=== PATIENT | male | born 1960 | race Caucasian/White ===

== ENCOUNTER 2017-12-11 10:47 | Outpatient (REF) | payer MEDICAID, SELFPAY ==
[2017-12-11 19:58] LABS: Cholesterol 165 mg/dL (50-200); HDL Cholesterol 70 mg/dL (40-60); LDL CHOLESTEROL 87 mg/dL (<100); Triglyceride 48 mg/dL (30-150)
== END 2017-12-11 11:07 ==
LOC: NCHCN 10:47
PROVIDERS: PCP Internal Medicine; Visit Provider Internal Medicine
DX: E11.9 Type 2 diabetes mellitus without complications (principal); I10 Essential (primary) hypertension; Z95.0 Presence of cardiac pacemaker
CPT/HCPCS: 80061; 83721

== ENCOUNTER 2019-05-02 09:18 | Outpatient (REF) | payer MEDICAID, SELFPAY ==
[2019-05-02 21:46] LABS: HCT 39.3 % (40.0-50.0); HGB 13.4 g/dL (13.5-17.5); Mean Corp. HGB Concentration 34.1 g/dL (32.0-36.0); Mean Corpuscular Hemoglobin 30.2 pg (27.0-33.0); Mean Corpuscular Volume 88.7 fL (80-95); Mean Platelet Volume 9.8 fL (8.0-11.0); Platelet Count 121 x1000/uL (130-400); RBC 4.43 m/cumm (4.50-6.00); White Blood Cell Count 5.52 k/cumm (4.4-10.8)
[2019-05-02 22:33] LABS: ALT 30 U/L (16-63); AST 19 U/L (15-37); Alkaline Phosphatase 80 U/L (46-116); Anion Gap 9.1 mmol/L (3-11); BUN 9 mg/dL (7-18); Bilirubin, Total 0.4 mg/dL (0.2-1.0); CO2 27.9 mmol/L (21.0-32.0); CREATININE 0.76 mg/dL (0.70-1.30); Chloride 102 mmol/L (98-107); Glucose 208 mg/dL (74-106); Sodium 139 mmol/L (136-145)
[2019-05-02 22:34] LABS: Hemoglobin A1C 7.4 % (3.8-5.6)
[2019-05-02 22:49] LABS: Calculated LDL 127 mg/dL (<100); Cholesterol 227 mg/dL (<200); HDL Cholesterol 78 mg/dL (40-60); Triglyceride 111 mg/dL (<150)
== END 2019-05-02 09:38 ==
LOC: NCHCN 09:18
PROVIDERS: PCP Internal Medicine; Visit Provider Internal Medicine
DX: E11.9 Type 2 diabetes mellitus without complications (principal); K74.60 Unspecified cirrhosis of liver
CPT/HCPCS: 80053; 80061; 85027; 83036

== ENCOUNTER 2019-05-05 09:39 | Outpatient (REF) | payer MEDICAID, SELFPAY ==
[2019-05-05 22:45] LABS: COMMENT (LAB VIEW ONLY) 50.97 mg/dL
[2019-05-05 22:56] LABS: Microalb ug/mg Crea 1742.2 ug/mg Cr
== END 2019-05-05 09:59 ==
LOC: NCHCN 09:39
PROVIDERS: PCP Internal Medicine; Visit Provider Internal Medicine
DX: E11.9 Type 2 diabetes mellitus without complications (principal)
CPT/HCPCS: 82043; 82570

== ENCOUNTER 2020-05-15 11:40 | Outpatient (REF) | payer MEDICAID, SELFPAY ==
[2020-05-15 14:04] LABS: Anion Gap 8.7 mmol/L (3-11); BUN 18 mg/dL (7-18); CO2 26.3 mmol/L (21.0-32.0); CREATININE 0.7 mg/dL (0.70-1.30); Calculated LDL 108 mg/dL (<100); Chloride 101 mmol/L (98-107); Cholesterol 217 mg/dL (<200); Glucose 166 mg/dL (74-106); HDL Cholesterol 93 mg/dL (40-60); Potassium 4.3 mmol/L (3.5-5.1); Sodium 136 mmol/L (136-145); Triglyceride 83 mg/dL (<150)
[2020-05-15 14:21] LABS: Hemoglobin A1C 7.8 % (<5.7)
[2020-05-15 14:56] LABS: COMMENT (LAB VIEW ONLY) 90.57 mg/dL
== END 2020-05-15 11:41 | disposition home or self-care (01) ==
LOC: NCHCN 11:40
PROVIDERS: PCP Internal Medicine; Visit Provider Internal Medicine
DX: I10 Essential (primary) hypertension (principal); E11.9 Type 2 diabetes mellitus without complications; R80.9 Proteinuria, unspecified
CPT/HCPCS: 80048; 80061; 82043; 82570; 83036

== ENCOUNTER 2020-07-09 16:40 | Outpatient (REF) | payer MEDICAID, SELFPAY ==
[2020-07-09 21:32] LABS: COMMENT (LAB VIEW ONLY) 36.27 mg/dL
[2020-07-09 21:33] LABS: Microalb ug/mg Crea 837.1 ug/mg Cr
== END 2020-07-09 16:41 | disposition home or self-care (01) ==
LOC: NCHCN 16:40
PROVIDERS: PCP Internal Medicine; Visit Provider Internal Medicine
DX: E11.9 Type 2 diabetes mellitus without complications (principal)
CPT/HCPCS: 82043; 82570

== ENCOUNTER 2021-03-21 08:53 | Outpatient (REF) | payer MEDICAID, SELFPAY ==
[2021-03-21 14:58] LABS: Abs Immature Grans 0.01 10^3/uL (0.0-0.06); Absolute Basophil Count 0.04 10^3/uL (0.0-0.2); Absolute Eosinophil Count 0.21 10^3/uL (0.0-0.7); Absolute Lymphocyte Count 1.36 10^3/uL (1.2-3.4); Absolute Monocyte Count 0.39 10^3/uL (0.1-0.8); Absolute Neutrophil Count 3.12 10^3/uL (1.2-6.7); Basophils % 0.8; Eosinophils % 4.1; HCT 37.1 % (40.0-50.0); HGB 11.9 g/dL (13.5-17.5); Immature Grans % 0.2; Lymphocytes % 26.5; MCH 29.2 pg (27.0-33.0); MCHC 32.1 % (32.0-36.0); MCV 91.2 fL (80-95); MPV 9.9 fL (8.0-11.0); Monocytes % 7.6; Neutrophils % 60.8; Nucleated RBC 0 %; Platelet Count 120 10^3/uL (130-400); RBC 4.07 10^6/uL (4.36-5.78); RDW 13.6 % (11.8-14.1); RDW-SD 45.5 fL; WBC 5.13 10^3/uL (4.4-10.8)
[2021-03-21 16:00] LABS: Hemoglobin A1C 6.8 % (<5.7)
[2021-03-21 16:14] LABS: ALT 42 U/L (16-63); AST 26 U/L (15-37); Albumin 3.8 g/dL (3.4-5.0); Alkaline Phosphatase 93 U/L (46-116); Anion Gap 6.5 mmol/L (3-11); BUN 17 mg/dL (7-18); Bilirubin, Total 0.4 mg/dL (0.2-1.0); CO2 28.5 mmol/L (21.0-32.0); CREATININE 0.8 mg/dL (0.70-1.30); Calcium 8.7 mg/dL (8.5-10.1); Calculated LDL 103 mg/dL (<100); Chloride 105 mmol/L (98-107); Cholesterol 199 mg/dL (<200); Glucose 156 mg/dL (74-106); HDL Cholesterol 86 mg/dL (40-60); Potassium 4.5 mmol/L (3.5-5.1); Sodium 140 mmol/L (136-145); Total Protein 6.8 g/dL (6.4-8.2); Triglyceride 51 mg/dL (<150)
== END 2021-03-21 08:54 | disposition home or self-care (01) ==
LOC: NCHCN 08:53
PROVIDERS: PCP Internal Medicine; Visit Provider Internal Medicine
DX: E78.5 Hyperlipidemia, unspecified (principal); K74.60 Unspecified cirrhosis of liver; E11.9 Type 2 diabetes mellitus without complications
CPT/HCPCS: 80053; 80061; 83036; 85025

== ENCOUNTER 2022-04-11 14:43 | Outpatient (REF) | payer MEDICAID, SELFPAY ==
[2022-04-11 20:56] LABS: HCT 35.5 % (40.0-50.0); HGB 11.6 g/dL (13.5-17.5); MCHC 32.7 % (32.0-36.0); MCV 89 fL (80-95); MPV 9.9 fL (8.0-11.0); Platelet Count 120 10^3/uL (130-400); RDW 13.5 % (11.8-14.1); RDW-SD 44.4 fL; WBC 5.23 10^3/uL (4.4-10.8)
[2022-04-11 21:11] LABS: ALT 39 U/L (16-63); AST 27 U/L (15-37); Albumin 3.9 g/dL (3.4-5.0); Alkaline Phosphatase 99 U/L (46-116); Anion Gap 6.5 mmol/L (3-11); BUN 19 mg/dL (7-18); Bilirubin, Total 0.3 mg/dL (0.2-1.0); CO2 26.5 mmol/L (21.0-32.0); CREATININE 0.8 mg/dL (0.70-1.30); Chloride 105 mmol/L (98-107); Estimated GFR 99.44 (mL/min/1.73m2); Glucose 174 mg/dL (74-106); Potassium 4.5 mmol/L (3.5-5.1); Sodium 138 mmol/L (136-145); Total Protein 7.3 g/dL (6.4-8.2)
[2022-04-11 21:34] LABS: Hemoglobin A1C 7.3 % (<5.7)
[2022-04-11 21:40] LABS: COMMENT (LAB VIEW ONLY) 35.75 mg/dL
[2022-04-11 21:41] LABS: Microalb ug/mg Crea 1678.9 ug/mg Cr
== END 2022-04-11 14:44 | disposition home or self-care (01) ==
LOC: NCHCN 14:43
PROVIDERS: PCP Internal Medicine; Visit Provider Internal Medicine
DX: E11.9 Type 2 diabetes mellitus without complications (principal); I10 Essential (primary) hypertension; K74.60 Unspecified cirrhosis of liver
CPT/HCPCS: 80053; 85027; 82043; 82570; 83036

== ENCOUNTER 2022-12-22 09:13 | Outpatient (REF) | payer MEDICAID, SELFPAY ==
--- OUTSIDE RECORDS SUMMARY | 2022-12-22 09:15 | XMS_ITS | CCD ---
Author Name Unknown Address [address] [place] [address] [id number] Organization Unknown Address [address] [place] [address] [id number] Care Team Providers Care Deputy Commonwealth'S Attorney Name Role Phone SRIRAM BROWER Attending Physician [phone] Vital Signs Unknown or Not Available. Allergies Allergy Code Allergy Type Reaction Status No Known Allergies 0 No known allergies Active Procedures Unknown or Not Available. History of Immunizations Unknown or Not Available. Problems Problem Code Start Date Resolved Date Status Hyperlipidemia 16625243 Active Squamous cell carcinoma 961903104 A ctive Callus 621978964 Active Hearing loss 57927574 Active Dupuytren 040754716 Active Pain in right shoulder 96068264465669338 Active Venous insufficiency 95078904 Acti ve H/O: cardiac pacemaker 387761723 Ac tive ADHD 613733465 Active Hypertension 53792195 Active Pain in left ankle 029470661 Active Diabetes 2 67343836 Active Albumin level 949609292 Active Cirrhosis 69929998 Active Hepatitis C 20070558 Active Alcoholism 3814691 Active Esophageal varices 21555774 Active Results Unknown or Not Available. Active Medications Unknown or Not Available. Medications Administered During Visit Unknown or Not Available. Encounters Encounter Diagnosis Diagnosis Code Start Date Unspecified cirrhosis of liver K7460 0 04/22/2022 Social History Smoking Status Code Start Date End Date Never smoker 621311148 Patient Decision Aids Unknown or Not Available. Discharge Instructions You were admitted to [facility] on 04/22/2022 07:40 with a principal diagnosis of Unspecified cirrhosis of liver You were discharged from [facility] on 04/22/2022 07:40 Should you have any questions prior to discharge, please contact a member of your healthcare team. If you have left the hospital and have any questions, please contact your primary care physician. Chief Complaint and Reason For Visit Chief Complaint Date of Onset CIRRHOSIS Function Status Unknown or Not Available. Plan of Care Unknown or Not Available. Referral/Transition of Care Unknown or Not Available.
--- OUTSIDE RECORDS SUMMARY | 2022-12-22 09:15 | XMS_ITS | CCD ---
Author Name Unknown Address [address] [place] [address] [id number] Organization Unknown Address [address] [place] [address] [id number] Care Team Providers Care Administrative Job Titles Name Role Phone KALLI GARCIA Attending Physician [phone] Vital Signs Unknown or Not Available. Allergies Allergy Code Allergy Type Reaction Status No Known Allergies 0 No known allergies Active Procedures Unknown or Not Available. History of Immunizations Unknown or Not Available. Problems Problem Code Start Date Resolved Date Status Hyperlipidemia 82614417 Active Squamous cell carcinoma 074813981 A ctive Callus 999655356 Active Hearing loss 68071945 Active Dupuytren 092226014 Active Pain in right shoulder 92424574531609232 Active Venous insufficiency 51648425 Acti ve H/O: cardiac pacemaker 505661251 Ac tive ADHD 996687182 Active Hypertension 69281931 Active Pain in left ankle 274352194 Active Diabetes 2 47367767 Active Albumin level 666484402 Active Cirrhosis 78450036 Active Hepatitis C 99251161 Active Alcoholism 6138712 Active Esophageal varices 49134583 Active Results Unknown or Not Available. Active Medications Unknown or Not Available. Medications Administered During Visit Unknown or Not Available. Encounters Encounter Diagnosis Diagnosis Code Start Date Canceled operative procedure 38882856 12/2022 Social History Smoking Status Code Start Date End Date Never smoker 206041811 Patient Decision Aids Unknown or Not Available. Discharge Instructions You were admitted to [facility] on 05/15/2022 12:32 with a principal diagnosis of Procedure and treatment not carried out for other reasons You were discharged from [facility] on 05/15/2022 12:32 Should you have any questions prior to discharge, please contact a member of your healthcare team. If you have left the hospital and have any questions, please contact your primary care physician. Chief Complaint and Reason For Visit Unknown or Not Available. Function Status Unknown or Not Available. Plan of Care Unknown or Not Available. Referral/Transition of Care Unknown or Not Available.
--- OUTSIDE RECORDS SUMMARY | 2022-12-22 09:15 | XMS_ITS | CCD ---
Author Name Unknown Address [address] [place] [address] [id number] Organization Unknown Address [address] [place], [place] [id number] Care Team Providers Care Physician [facility] Name Role Phone SUKH GRULLON Attending Physician [phone] Vital Signs Unknown or Not Available. Allergies Allergy Code Allergy Type Reaction Status No Known Allergies 0 No known allergies Active Procedures Unknown or Not Available. History of Immunizations Unknown or Not Available. Problems Problem Code Start Date Resolved Date Status Hyperlipidemia 06752803 Active Squamous cell carcinoma 116301180 A ctive Callus 102807517 Active Hearing loss 72752231 Active Dupuytren 433561362 Active Pain in right shoulder 04255456397684446 Active Venous insufficiency 22391264 Acti ve H/O: cardiac pacemaker 226288265 Ac tive ADHD 431435070 Active Hypertension 84563386 Active Pain in left ankle 457415862 Active Diabetes 2 28911924 Active Albumin level 838585011 Active Cirrhosis 15161702 Active Hepatitis C 14842522 Active Alcoholism 2109313 Active Esophageal varices 10210753 Active Results Unknown or Not Available. Active Medications Unknown or Not Available. Medications Administered During Visit Unknown or Not Available. Encounters Encounter Diagnosis Diagnosis Code Start Date Counseling 099723775 06/26/2022 Social History Smoking Status Code Start Date End Date Never smoker 878426491 Patient Decision Aids Unknown or Not Available. Discharge Instructions You were admitted to [facility] on 06/26/2022 08:53 with a principal diagnosis of Other specified counseling You were discharged from [facility] on 06/26/2022 08:53 Should you have any questions prior to [...]
--- OUTSIDE RECORDS SUMMARY | 2022-12-22 09:16 | XMS_ITS | CCD ---
Author Name Unknown Address [address] [place] [address] [id number] Organization Unknown Address [address] [place], [place] [phone] Care Team Providers Care Ict Support Engineer Name Role Phone SUKH GRULLON Attending Physician [phone] Vital Signs Vital Sign Value Unit Date/Time Recent/Initial ? BP Systolic 117 mmHg 09/22/2022 12:15 Initial VS BP Diastolic 75 mmHg 09/22/2022 12:15 Initia l VS Respiratory Rate 15 bpm 09/22/2022 12:15 In itial VS Heart Rate 69 bpm 09/22/2022 12:15 Initial VS O2 % BldC Oximetry 97 % 09/22/2022 12:15 Initial VS BP Systolic 135 mmHg 09/22/2022 12:57 Most Re cent VS BP Diastolic 75 mmHg 09/22/2022 12:57 Most R ecent VS Respiratory Rate 14 bpm 09/22/2022 12:[address] Recent VS Heart Rate 65 bpm 09/22/2022 12:57 Most Rec ent VS O2 % BldC Oximetry 97 % 09/22/2022 12:57 Most Recent VS Allergies Allergy Code Allergy Type Reaction Status No Known Allergies 0 No known allergies Active Procedures Procedure Code Procedure Type Date Colonoscopy Flx Dx w/Collj Spec When Pfrmd 84364 CPT 09/22/2022 Anesthesia Lower Intst Endoscopic Px Scr Colsc 42919 CPT 09/22/2022 History of Immunizations Unknown or Not Available. Problems Problem Code Start Date Resolved Date Status Hyperlipidemia 11945037 Active Squamous cell carcinoma 180460018 A ctive Callus 485844100 Active Hearing loss 58293420 Active Dupuytren 991665435 Active Pain in right shoulder 71270576393430297 Active Venous insufficiency 39585476 Acti ve H/O: cardiac pacemaker 753160525 Ac tive ADHD 300411792 Active Hypertension 06691256 Active Pain in left ankle 535493730 Active Diabetes 2 78304057 Active Albumin level 914803435 Active Cirrhosis 68126718 Active Hepatitis C 23215995 Active Alcoholism 2220577 Active Esophageal varices 93460325 Active Results Unknown or Not Available. Active Medications Unknown or Not Available. Medications Administered During Visit Unknown or Not Available. Encounters Encounter Diagnosis Diagnosis Code Start Date Encounter for screening for malignant neoplasm o f colon Z1211 09/22/2022 Social History Smoking Status Code Start Date End Date Never smoker 526795538 Patient Decision Aids Unknown or Not Available. Discharge Instructions You were admitted to [facility] on 09/22/2022 09:43 with a principal diagnosis of Encounter for screening for malignant neoplasm of colon You had the following procedures done:Colonoscopy Flx Dx w/Collj Spec When PfrmdAnesthesia Lower Intst Endoscopic Px Scr Colsc You were discharged from [facility] on 09/22/2022 12:55 Should you have any questions prior to [...]
--- OUTSIDE RECORDS SUMMARY | 2022-12-22 09:16 | XMS_ITS | CCD ---
Author Name Unknown Address [address] [place] [address] [id number] Organization Unknown Address [address] [place] [address] [phone] Care Team Providers Care Complaint Evaluation Supervisor Name Role Phone NAZARIOERICKSONESTELLEMARK SUKH Gama Attending Physician [phone] Vital Signs Unknown or Not Available. Allergies Allergy Code Allergy Type Reaction Status No Known Allergies 0 No known allergies Active Procedures Unknown or Not Available. History of Immunizations Unknown or Not Available. Problems Problem Code Start Date Resolved Date Status Hyperlipidemia 86691577 Active Squamous cell carcinoma 397866533 A ctive Callus 357199716 Active Hearing loss 89519552 Active Dupuytren 587014599 Active Pain in right shoulder 80071257431634735 Active Venous insufficiency 85870380 Acti ve H/O: cardiac pacemaker 659619984 Ac tive ADHD 216028768 Active Hypertension 29486870 Active Pain in left ankle 996998779 Active Diabetes 2 30633185 Active Albumin level 689226492 Active Cirrhosis 03147921 Active Hepatitis C 33920865 Active Alcoholism 6699751 Active Esophageal varices 16169971 Active Results Unknown or Not Available. Active Medications Unknown or Not Available. Medications Administered During Visit Unknown or Not Available. Encounters Encounter Diagnosis Diagnosis Code Start Date Screening for malignant neoplasm of colon 215413 004 09/22/2022 Social History Smoking Status Code Start Date End Date Never smoker 327357916 Patient Decision Aids Unknown or Not Available. Discharge Instructions You were admitted to [facility] on 09/22/2022 00:39 with a principal diagnosis of Encounter for screening for malignant neoplasm of colon You were discharged from [facility] on 09/22/2022 00:39 Should you have any questions prior to [...]
--- OUTSIDE RECORDS SUMMARY | 2022-12-22 09:17 | XMS_ITS | CCD ---
Author Name Unknown Address [address] [place] [address] [id number] Organization Unknown Address [address] [place] [address] [phone] Care Team Providers Care Financial Planning Advisor Name Role Phone SALOME SCHRADER Attending Physician [phone] SALOME SCHRADER Rounding (Secondary) Physic carlos a [phone] Vital Signs Unknown or Not Available. Allergies Allergy Code Allergy Type Reaction Status No Known Allergies 0 No known allergies Active Procedures Unknown or Not Available. History of Immunizations Unknown or Not Available. Problems Problem Code Start Date Resolved Date Status Hyperlipidemia 56486402 Active Squamous cell carcinoma 655148628 A ctive Callus 811706833 Active Hearing loss 34247077 Active Dupuytren 818082814 Active Pain in right shoulder 57529650878167456 Active Venous insufficiency 69935133 Acti ve H/O: cardiac pacemaker 973289213 Ac tive ADHD 321526584 Active Hypertension 19060136 Active Pain in left ankle 149000613 Active Diabetes 2 05178868 Active Albumin level 234275019 Active Cirrhosis 33851090 Active Hepatitis C 77059758 Active Alcoholism 6591142 Active Esophageal varices 94511301 Active Results Unknown or Not Available. Active Medications Unknown or Not Available. Medications Administered During Visit Unknown or Not Available. 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 Discharge Instructions You were admitted to [facility] on 02/07/2021 09:22 with a principal diagnosis of Palmar fascial fibromatosis [Dupuytren] You were discharged from [facility] on 02/07/2021 00:00 Should you have any questions prior to [...]
--- OUTSIDE RECORDS SUMMARY | 2022-12-22 09:17 | XMS_ITS | CCD ---
Author Name Unknown Address [address] [place] [address] [id number] Organization Unknown Address [address] [place] [address] [phone] Care Team Providers Care Medical Officer Name Role Phone SYLVAIN PINA Attending Physician [phone] SYLVAIN PINA Rounding (Secondary) Physicia n [phone] Vital Signs Unknown or Not Available. Allergies Allergy Code Allergy Type Reaction Status No Known Allergies 0 No known allergies Active Procedures Unknown or Not Available. History of Immunizations Unknown or Not Available. Problems Problem Code Start Date Resolved Date Status Hyperlipidemia 20818536 Active Squamous cell carcinoma 360782142 A ctive Callus 330880464 Active Hearing loss 82069571 Active Dupuytren 846492326 Active Pain in right shoulder 45739924446114862 Active Venous insufficiency 81579241 Acti ve H/O: cardiac pacemaker 063520486 Ac tive ADHD 335523061 Active Hypertension 23653834 Active Pain in left ankle 248052784 Active Diabetes 2 17121091 Active Albumin level 296322051 Active Cirrhosis 74034250 Active Hepatitis C 28187379 Active Alcoholism 9521648 Active Esophageal varices 01602779 Active Results Unknown or Not Available. Active Medications Unknown or Not Available. Medications Administered During Visit Unknown or Not Available. Encounters Encounter Diagnosis Diagnosis Code Start Date Pressure ulcer of other site, stage 3 C17858 05/16/2021 Social History Smoking Status Code Start Date End Date Never smoker 725455167 Patient Decision Aids Unknown or Not Available. Discharge Instructions You were admitted to [facility] on 05/16/2021 11:43 with a principal diagnosis of Pressure ulcer of other site, stage 3 You were discharged from [facility] on 05/16/2021 00:00 Should you have any questions prior [...]
--- OUTSIDE RECORDS SUMMARY | 2022-12-22 09:17 | XMS_ITS | CCD ---
Author Name Unknown Address [address] [place] [address] [id number] Organization Unknown Address [address] [place] [address] [phone] Care Team Providers Care Auto Roller Name Role Phone SYLVAIN PINA Attending Physician [phone] SYLVAIN PINA Rounding (Secondary) Physicia n [phone] Vital Signs Unknown or Not Available. Allergies Allergy Code Allergy Type Reaction Status No Known Allergies 0 No known allergies Active Procedures Unknown or Not Available. History of Immunizations Unknown or Not Available. Problems Problem Code Start Date Resolved Date Status Hyperlipidemia 83543667 Active Squamous cell carcinoma 720545225 A ctive Callus 082666573 Active Hearing loss 89184051 Active Dupuytren 558570337 Active Pain in right shoulder 14657641147382337 Active Venous insufficiency 38448688 Acti ve H/O: cardiac pacemaker 775867451 Ac tive ADHD 108191951 Active Hypertension 46528741 Active Pain in left ankle 796709629 Active Diabetes 2 58591263 Active Albumin level 006487521 Active Cirrhosis 83455659 Active Hepatitis C 45233339 Active Alcoholism 2164347 Active Esophageal varices 34954781 Active Results Unknown or Not Available. Active Medications Unknown or Not Available. Medications Administered During Visit Unknown or Not Available. Encounters Encounter Diagnosis Diagnosis Code Start Date Pressure ulcer stage 3 992490943 Social History Smoking Status Code Start Date End Date Never smoker 018151421 Patient Decision Aids Unknown or Not Available. Discharge Instructions You were admitted to [facility] on 03/13/2021 12:44 with a principal diagnosis of Pressure ulcer of other site, stage 3 You were discharged from [facility] on 03/13/2021 00:00 Should you have any questions prior [...]
--- OUTSIDE RECORDS SUMMARY | 2022-12-22 09:17 | XMS_ITS | CCD ---
Author Name Unknown Address [address] [place] [address] [phone] Organization Unknown Address [address] [place] [address] [phone] Care Team Providers Care Call Or Contact Centre Operator Name Role Phone SYLVAIN PINA Attending Physician [phone] SYLVAIN PINA Rounding (Secondary) Physicia n [phone] Vital Signs Unknown or Not Available. Allergies Allergy Code Allergy Type Reaction Status No Known Allergies 0 No known allergies Active Procedures Unknown or Not Available. History of Immunizations Unknown or Not Available. Problems Problem Code Start Date Resolved Date Status Hyperlipidemia 70440143 Active Squamous cell carcinoma 449735521 A ctive Callus 933367107 Active Hearing loss 02611218 Active Dupuytren 903683889 Active Pain in right shoulder 51401997164477897 Active Venous insufficiency 63764662 Acti ve H/O: cardiac pacemaker 271651950 Ac tive ADHD 177123025 Active Hypertension 66016168 Active Pain in left ankle 854057776 Active Diabetes 2 30379488 Active Albumin level 885529726 Active Cirrhosis 87621603 Active Hepatitis C 50201292 Active Alcoholism 3391201 Active Esophageal varices 66294279 Active Results Unknown or Not Available. Active Medications Unknown or Not Available. Medications Administered During Visit Unknown or Not Available. Encounters Encounter Diagnosis Diagnosis Code Start Date Pressure ulcer stage 3 451466746 2 Social History Smoking Status Code Start Date End Date Never smoker 290328671 Patient Decision Aids Unknown or Not Available. Discharge Instructions You were admitted to [facility] on 04/08/2021 10:35 with a principal diagnosis of Pressure ulcer of other site, stage 3 You were discharged from [facility] on 04/08/2021 00:00 Should you have any questions prior [...]
--- OUTSIDE RECORDS SUMMARY | 2022-12-22 09:18 | XMS_ITS | CCD ---
Author Name Unknown Address [address] [place] [address] [phone] Organization Unknown Address [address] [place] [address] [phone] Care Team Providers Care Cable Former Name Role Phone KALLI ODONNELL Attending Physician [phone] KIMBERLYN SOLORIO Er Physician [phone] SOPHIA Carmen Registered Nurse [phone] Vital Signs Vital Sign Value Unit Date/Time Recent/Initial ? BMI (Body Mass Index) 25.02 kg/m^2 06/18/2021 14: 01 Initial VS Weight Measured 174.39 lbs 06/18/2021 14:01 Ini tial VS Height 70 in 06/18/2021 14:01 Initial VS BSA (Body Surface Area) 1.98 m^2 06/18/2021 1 4:01 Initial VS BP Systolic 168 mmHg 06/18/2021 14:01 Initial VS BP Diastolic 99 mmHg 06/18/2021 14:01 Initia l VS Respiratory Rate 16 bpm 06/18/2021 14:01 In itial VS Heart Rate 115 bpm 06/18/2021 14:01 Initial VS O2 % BldC Oximetry 98 % 06/18/2021 14:01 Initial VS Body Temperature 37.2 degrees 06/18/2021 14:01 In itial VS Allergies Allergy Code Allergy Type Reaction Status No Known Allergies 0 No known allergies Active Procedures Unknown or Not Available. History of Immunizations Unknown or Not Available. Problems Problem Code Start Date Resolved Date Status Hyperlipidemia 43658840 Active Squamous cell carcinoma 012049619 A ctive Callus 612505813 Active Hearing loss 17763542 Active Dupuytren 812892335 Active Pain in right shoulder 97870794649892617 Active Venous insufficiency 92307336 Acti ve H/O: cardiac pacemaker 053505043 Ac tive ADHD 249596849 Active Hypertension 78114888 Active Pain in left ankle 210978127 Active Diabetes 2 64962769 Active Albumin level 535395341 Active Cirrhosis 78331067 Active Hepatitis C 02797927 Active Alcoholism 2326500 Active Esophageal varices 61640763 Active Results GLUCOSE FINGER/HEEL CAPILLAR Y - Collect Date/Time: 06/18/2021 13:56 Test Name Code Test Result Test Units Test Ref Rang e GLUCOSE CAP 210 mg/dL L=70 H=116 Active Medications Unknown or Not Available. Medications Administered During Visit Unknown or Not Available. Encounters Encounter Diagnosis Diagnosis Code Start Date Alcohol abuse, uncomplicated F1010 Social History Smoking Status Code Start Date End Date Never smoker 663379537 Patient Decision Aids Unknown or Not Available. Discharge Instructions You were admitted to [facility] on 06/18/2021 13:40 with a principal diagnosis of Alcohol abuse, uncomplicated You had the following tests done:GLUCOSE FINGER/HEEL CAPILLARY You were discharged from [facility] on 06/18/2021 17:00 Should you have any questions prior to discharge, please contact a member of your healthcare team. If you have left the hospital and have any questions, please contact your primary care physician. Chief Complaint and Reason For Visit Chief Complaint Date of Onset INTOXICATION Function Status Unknown or Not Available. Plan of Care Unknown or Not Available. Referral/Transition of Care Unknown or Not Available.
--- OUTSIDE RECORDS SUMMARY | 2022-12-22 09:18 | XMS_ITS | CCD ---
Author Name Unknown Address [address] [place] [address] [id number] Organization Unknown Address [address] [place] [address] [phone] Care Team Providers Care Account Coordinator Name Role Phone SALOME SCHRADER Attending Physician [phone] SALOME SCHRADER Rounding (Secondary) Physic carlos a [phone] Vital Signs Unknown or Not Available. Allergies Allergy Code Allergy Type Reaction Status No Known Allergies 0 No known allergies Active Procedures Unknown or Not Available. History of Immunizations Unknown or Not Available. Problems Problem Code Start Date Resolved Date Status Hyperlipidemia 73537098 Active Squamous cell carcinoma 007896723 A ctive Callus 725534299 Active Hearing loss 00276515 Active Dupuytren 117688648 Active Pain in right shoulder 58156516781181583 Active Venous insufficiency 09267820 Acti ve H/O: cardiac pacemaker 582414215 Ac tive ADHD 285256664 Active Hypertension 72585232 Active Pain in left ankle 248174780 Active Diabetes 2 92360195 Active Albumin level 875838391 Active Cirrhosis 38271407 Active Hepatitis C 16184477 Active Alcoholism 1788881 Active Esophageal varices 98885189 Active Results Unknown or Not Available. Active Medications Unknown or Not Available. Medications Administered During Visit Unknown or Not Available. Encounters Encounter Diagnosis Diagnosis Code Start Date Canceled operative procedure 30579044 Social History Smoking Status Code Start Date End Date Never smoker 172919652 Patient Decision Aids Unknown or Not Available. Discharge Instructions You were admitted to [facility] on 12/30/2021 16:25 with a principal diagnosis of Procedure and treatment not carried out, unspecified reason You were discharged from [facility] on 12/30/2021 00:00 Should you have any questions prior [...]
--- OUTSIDE RECORDS SUMMARY | 2022-12-22 09:19 | XMS_ITS | CCD ---
Author Name Unknown Address [address] [place] [address] [id number] Organization Unknown Address [address], [place] [id number] Care Team Providers Care Tinning Equipment Tender Name Role Phone SALOME SCHRADER Attending Physician [phone] Vital Signs Vital Sign Value Unit Date/Time Recent/Initial ? BMI (Body Mass Index) 23.73 kg/m^2 01/10/2022 16: 10 Initial VS Weight Measured 175 lbs 01/10/2022 16:10 Ini tial VS Height 72 in 01/10/2022 16:10 Initial VS BSA (Body Surface Area) 2.01 m^2 01/10/2022 1 6:10 Initial VS BP Systolic 124 mmHg 01/16/2022 14:03 Initial VS BP Diastolic 67 mmHg 01/16/2022 14:03 Initia l VS Respiratory Rate 14 bpm 01/16/2022 14:03 In itial VS Heart Rate 92 bpm 01/16/2022 14:03 Initial VS O2 % BldC Oximetry 96 % 01/16/2022 14:03 Initial VS Body Temperature 36.1 degrees 01/16/2022 14:03 In itial VS Allergies Allergy Code Allergy Type Reaction Status No Known Allergies 0 No known allergies Active Procedures Procedure Code Procedure Type Date Fasciectomy, Partial Palmar w/Release, Single Digit, w/Prox Ip Joint, w/wo Tiss Rearrang/Skin Graft 18637 CPT 01/16/2022 Fasciectom, Partl Palmar w/R elease, Sngl Digit, w/Prox Ip Jnt, w/wo Tiss Rearrang/Graft; Add'l Digi 82718 CPT 01/16/2022 Fasciectom, Partl Palmar w/R elease, Sngl Digit, w/Prox Ip Jnt, w/wo Tiss Rearrang/Graft; Add'l Digi 77616 CPT 01/16/2022 Capsulectomy/Capsulotomy; In terphalangeal Joint, Each Joint 39364 [facility] 01/16/2022 Capsulectomy/Capsulotomy; In terphalangeal Joint, Each Joint 39615 [facility] 01/16/2022 Injection Anesthetic Agent a nd/or Steroid; Brachial Plexus 37965 [facility] 01/16/2022 Anesthesia, Nerves/Muscles/T endons/Fascia & Bursae, Lower Arm/Hand 50392 [facility] 01/16/2022 History of Immunizations Unknown or Not Available. Problems Problem Code Start Date Resolved Date Status Hyperlipidemia 12589516 Active Squamous cell carcinoma 265771284 A ctive Callus 259172998 Active Hearing loss 11139571 Active Dupuytren 224838771 Active Pain in right shoulder 08828237348503356 Active Venous insufficiency 05736802 Acti ve H/O: cardiac pacemaker 535171891 Ac tive ADHD 958655976 Active Hypertension 04519764 Active Pain in left ankle 595530680 Active Diabetes 2 41384413 Active Albumin level 871955893 Active Cirrhosis 53648174 Active Hepatitis C 00723479 Active Alcoholism 0335252 Active Esophageal varices 39748150 Active Results BASIC METABOLIC PANEL (BMP) - Collect Date/Time: 01/16/2022 07:15 Test Name Code Test Result Test Units Test Ref Rang e GLUCOSE 2345-7 170 mg/dL L=70 H=116 BUN 3094-0 17 mg/dL L=6 H=25 CREATININE 2160-0 0.76 mg/dL L=0.67 H=1.17 SODIUM SERUM 2951-2 136 mmol/L L=136 H=145 POTASSIUM SERUM 2823-3 4.3 mmol/L L=3.4 H=5 .2 CHLORIDE SERUM 2075-0 101 mmol/L L=96 H=110 CARBON DIOXIDE (CO2) 2028-9 25 mmol/L L=22 H=34 ANION GAP 60037-0 9.6 mmol/L CALCIUM SERUM 27543-2 8.7 mg/dL L=8.2 H=10. 2 AGE 61 years eGFR (non-Afr.Amer.) 34778-7 104 mL/min eGFR (Afr-Liberian) 09143-0 >120 mL/min GLUCOSE FINGER/HEEL CAPILLAR Y - Collect Date/Time: 01/16/2022 13:05 Test Name Code Test Result Test Units Test Ref Rang e GLUCOSE CAP 238 mg/dL L=70 H=116 GLUCOSE FINGER/HEEL CAPILLAR Y - Collect Date/Time: 01/16/2022 06:56 Test Name Code Test Result Test Units Test Ref Rang e GLUCOSE CAP 158 mg/dL L=70 H=116 HEMOGLOBIN A1C* - Collect Da te/Time: 01/16/2022 07:15 Test Name Code Test Result Test Units Test Ref Rang e Hgb A1c 4548-4 7.1 % L=3.8 H=5.7 MEAN BLOOD GLUCOSE 28393-1 150 mg/dL CBC W/ DIFFERENTIAL* - Colle ct Date/Time: 01/16/2022 07:15 Test Name Code Test Result Test Units Test Ref Rang e WBC 6690-2 5.92 th/cmm L=5.00 H=10.00 NEUT % 66.7 % L=40.0 H=80.0 LYMPH % 22.8 % L=10.0 H=50.0 MONO % 42075-5 7.8 % L=2.0 H=12.0 EOS % 2.0 % L=0.0 H=8.0 BASO % 0.5 % L=0.0 H=3.0 IG % 2514-8 0.2 % L=0.0 H=1.1 NRBC % 50052-8 0.0 % L=0.0 H=0.0 NEUT abs count 751-8 4.0 th/cmm L=1.6 H=8. 4 LYMPH abs count 731-0 1.4 th/cmm L=1.5 H=4 .0 MONO abs count 742-7 0.5 th/cmm L=0.2 H=1. 0 EOS abs count 711-2 0.1 th/cmm L=0.0 H=0.5 BASO abs count 704-7 0.0 th/cmm L=0.0 H=0. 2 IG abs count 89902-0 0.0 th/cmm L=0.0 H=0.1 NRBC abs count 66123-6 0.0 mil/cmm L=0.0 H=0. 0 RBC 789-8 3.91 mil/cmm L=4.30 H=6.20 HEMOGLOBIN 718-7 11.7 gm/dL L=13.0 H=17.0 HEMATOCRIT 4544-3 35 % L=45 H=52 MCV 787-2 89 fL L=82 H=92 MCH 785-6 29.9 pg L=27.0 H=31.0 MCHC 786-4 33.6 % L=32.0 H=36.0 RDW-SD 788-0 43.9 fL L=39.0 H=49.0 PLATELET COUNT 777-3 119 th/cmm L=150 H=45 0 Active Medications Medications Administered During Visit Medication Dose Units Frequency Route Date/Time of Last Dose CeFAZolin IVPB FROZEN PREMIX : 2GM/100ML 2 GM X1 01/16/2022 07:5 0 ACETAMINOPHEN TABLET: 325MG 975 MG X1 PO 01/16/2022 07:26 CELECOXIB CAPSULE: 100MG 200 MG X1 PO 01/16/2022 07:27 MIDAZOLAM INJ SDV: 2MG/2ML 2 MG X1 IVP 01/16/2022 07:43 Encounters Encounter Diagnosis Diagnosis Code Start Date 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 Discharge Instructions You were admitted to [facility] on 01/16/2022 06:25 with a principal diagnosis of Palmar fascial fibromatosis [Dupuytren] You had the following procedures done:Fasciectomy, Partial Palmar w/Release, Single Digit, w/Prox Ip Joint, w/wo Tiss Rearrang/Skin GraftFasciectom, Partl Palmar w/Release, Sngl Digit, w/Prox Ip Jnt, w/wo Tiss Rearrang/Graft; Add'l DigiFasciectom, Partl Palmar w/Release, Sngl Digit, w/Prox Ip Jnt, w/wo Tiss Rearrang/Graft; Add'l DigiCapsulectomy/Capsulotomy; Interphalangeal Joint, Each JointCapsulectomy/Capsulotomy; Interphalangeal Joint, Each JointInjection Anesthetic Agent and/or Steroid; Brachial PlexusAnesthesia, Nerves/Muscles/Tendons/Fascia & Bursae, Lower Arm/Hand You had the following tests done:GLUCOSE FINGER/HEEL CAPILLARYBASIC METABOLIC PANEL (BMP)CBC W/ DIFFERENTIAL*HEMOGLOBIN A1C*GLUCOSE FINGER/HEEL CAPILLARY You were discharged from [facility] on 01/16/2022 15:09 Should you have any questions prior to [...]
--- OUTSIDE RECORDS SUMMARY | 2022-12-22 09:19 | XMS_ITS | CCD ---
Author Name Unknown Address [address] [place] [address] [id number] Organization Unknown Address [address], [place] [id number] Care Team Providers Care Screener Perfumer Name Role Phone SALOME SCHRADER Attending Physician [phone] SALOME SCHRADER Rounding (Secondary) Physic carlos a [phone] Vital Signs Unknown or Not Available. Allergies Allergy Code Allergy Type Reaction Status No Known Allergies 0 No known allergies Active Procedures Unknown or Not Available. History of Immunizations Unknown or Not Available. Problems Problem Code Start Date Resolved Date Status Hyperlipidemia 79639786 Active Squamous cell carcinoma 475898935 A ctive Callus 663492568 Active Hearing loss 93294723 Active Dupuytren 568331331 Active Pain in right shoulder 58929875341510232 Active Venous insufficiency 30536684 Acti ve H/O: cardiac pacemaker 818593657 Ac tive ADHD 070720256 Active Hypertension 01040509 Active Pain in left ankle 771413469 Active Diabetes 2 22996708 Active Albumin level 345056418 Active Cirrhosis 91812736 Active Hepatitis C 79179139 Active Alcoholism 0823851 Active Esophageal varices 53759740 Active Results Unknown or Not Available. Active Medications Unknown or Not Available. Medications Administered During Visit Unknown or Not Available. Encounters Encounter Diagnosis Diagnosis Code Start Date Follow-up orthopedic assessment [id number] 01/29/2022 Social History Smoking Status Code Start Date End Date Never smoker 733430683 Patient Decision Aids Unknown or Not Available. Discharge Instructions You were admitted to [facility] on 01/29/2022 12:41 with a principal diagnosis of Encounter for other orthopedic aftercare You were discharged from [facility] on 01/29/2022 00:00 Should you have any questions prior [...]
--- OUTSIDE RECORDS SUMMARY | 2022-12-22 09:20 | XMS_ITS | CCD ---
Author Name Unknown Address [address] [place] [address] [phone] Organization Unknown Address [address] [place] [address] [id number] Care Team Providers Care Recruitment And Outreach Assistant Name Role Phone SALOME SCHRADER Attending Physician [phone] Vital Signs Unknown or Not Available. Allergies Allergy Code Allergy Type Reaction Status No Known Allergies 0 No known allergies Active Procedures Unknown or Not Available. History of Immunizations Unknown or Not Available. Problems Problem Code Start Date Resolved Date Status Hyperlipidemia 02982140 Active Squamous cell carcinoma 309809397 A ctive Callus 445990397 Active Hearing loss 03207822 Active Dupuytren 857809113 Active Pain in right shoulder 90282443846866922 Active Venous insufficiency 09400501 Acti ve H/O: cardiac pacemaker 001927935 Ac tive ADHD 091093849 Active Hypertension 94312884 Active Pain in left ankle 145214656 Active Diabetes 2 78944850 Active Albumin level 430070220 Active Cirrhosis 56740115 Active Hepatitis C 29923480 Active Alcoholism 9275389 Active Esophageal varices 99516959 Active Results Unknown or Not Available. Active Medications Unknown or Not Available. Medications Administered During Visit Unknown or Not Available. Encounters Encounter Diagnosis Diagnosis Code Start Date Encounter for other orthopedic aftercare Z4789 01/17/2022 Social History Smoking Status Code Start Date End Date Never smoker [id number] Patient Decision Aids Unknown or Not Available. Discharge Instructions You were admitted to [facility] on 01/17/2022 10:14 with a principal diagnosis of Encounter for other orthopedic aftercare You were discharged from [facility] on 01/22/2022 12:15 Should you have any questions prior to [...]
--- OUTSIDE RECORDS SUMMARY | 2022-12-22 09:20 | XMS_ITS | CCD ---
Author Name Unknown Address [address] [place] [address] [id number] Organization Unknown Address [address] [place] [address] [id number] Care Team Providers Care Wind Energy Project Manager Name Role Phone SALOME SCHRADER Attending Physician [phone] Vital Signs Unknown or Not Available. Allergies Allergy Code Allergy Type Reaction Status No Known Allergies 0 No known allergies Active Procedures Unknown or Not Available. History of Immunizations Unknown or Not Available. Problems Problem Code Start Date Resolved Date Status Hyperlipidemia 15729444 Active Squamous cell carcinoma 506850156 A ctive Callus 944897358 Active Hearing loss 59507608 Active Dupuytren 030449863 Active Pain in right shoulder 49680295164169163 Active Venous insufficiency 29881916 Acti ve H/O: cardiac pacemaker 394197429 Ac tive ADHD 254469668 Active Hypertension 96417621 Active Pain in left ankle 423523422 Active Diabetes 2 69100926 Active Albumin level 573728108 Active Cirrhosis 02110778 Active Hepatitis C 32875774 Active Alcoholism 2400980 Active Esophageal varices 61424160 Active Results BRYN GRANGERID RHEONIX* - [place] ect Date/Time: 01/14/2022 09:39 Test Name Code Test Result Test Units Test Ref Rang e Tier- 03742-0 PRE-OP N/A SARS COV2 RNA: 47887-3 NEGATIVE N/A REFERENCE RANGE: NEGAT Active Medications Unknown or Not Available. Medications Administered During Visit Unknown or Not Available. Encounters Encounter Diagnosis Diagnosis Code Start Date Pre-surgery testing [id number] 01/14/2022 Social History Smoking Status Code Start Date End Date Never smoker 111706442 Patient Decision Aids Unknown or Not Available. Discharge Instructions You were admitted to [facility] on 01/14/2022 22:02 with a principal diagnosis of Encounter for preprocedural laboratory examination You had the following tests done:BRYN COVID RHEONIX* You were discharged from [facility] on 01/14/2022 22:02 Should you have any questions prior to [...]
--- OUTSIDE RECORDS SUMMARY | 2022-12-22 09:21 | XMS_ITS | CCD ---
Author Name Unknown Address [address] [place] [address] [id number] Organization Unknown Address [address], [place] [id number] Care Team Providers Care Data Software Engineer Name Role Phone JOHN AMARO Attending Physician [phone] KALLI CARUSO Er Physician 2 [phone] ZANDER Carmen Registered Nurse [phone] Vital Signs Vital Sign Value Unit Date/Time Recent/Initial ? BMI (Body Mass Index) 23.73 kg/m^2 01/27/2022 09: 11 Initial VS Weight Measured 175 lbs 01/27/2022 09:11 Ini tial VS Height 72 in 01/27/2022 09:11 Initial VS BSA (Body Surface Area) 2.01 m^2 01/27/2022 0 9:11 Initial VS BP Systolic 172 mmHg 01/27/2022 09:11 Initial VS BP Diastolic 87 mmHg 01/27/2022 09:11 Initia l VS Respiratory Rate 18 bpm 01/27/2022 09:11 In itial VS Heart Rate 99 bpm 01/27/2022 09:11 Initial VS O2 % BldC Oximetry 96 % 01/27/2022 09:11 Initial VS Body Temperature 36.7 degrees 01/27/2022 09:11 In itial VS BP Systolic 125 mmHg 01/27/2022 11:12 Most Re cent VS BP Diastolic 83 mmHg 01/27/2022 11:12 Most R ecent VS Respiratory Rate 18 bpm 01/27/2022 11:[address] Recent VS Heart Rate 88 bpm 01/27/2022 11:12 Most Rec ent VS O2 % BldC Oximetry 96 % 01/27/2022 11:12 Most Recent VS Allergies Allergy Code Allergy Type Reaction Status No Known Allergies 0 No known allergies Active Procedures Unknown or Not Available. History of Immunizations Unknown or Not Available. Problems Problem Code Start Date Resolved Date Status Hyperlipidemia 83099057 Active Squamous cell carcinoma 122749277 A ctive Callus 995785942 Active Hearing loss 96095969 Active Dupuytren 027176977 Active Pain in right shoulder 03875972017311702 Active Venous insufficiency 61384495 Acti ve H/O: cardiac pacemaker 809928545 Ac tive ADHD 602161099 Active Hypertension 40909296 Active Pain in left ankle 408657815 Active Diabetes 2 00918154 Active Albumin level 033343114 Active Cirrhosis 48125203 Active Hepatitis C 40728974 Active Alcoholism 0130408 Active Esophageal varices 97834415 Active Results BASIC METABOLIC PANEL (BMP) - Collect Date/Time: 01/27/2022 10:15 Test Name Code Test Result Test Units Test Ref Rang e GLUCOSE 2345-7 242 mg/dL L=70 H=116 BUN 3094-0 26 mg/dL L=6 H=25 CREATININE 2160-0 0.83 mg/dL L=0.67 H=1.17 SODIUM SERUM 2951-2 133 mmol/L L=136 H=145 POTASSIUM SERUM 2823-3 4.3 mmol/L L=3.4 H=5 .2 CHLORIDE SERUM 2075-0 99 mmol/L L=96 H=110 CARBON DIOXIDE (CO2) 2028-9 26 mmol/L L=22 H=34 ANION GAP 34572-9 8.0 mmol/L CALCIUM SERUM 75600-6 8.7 mg/dL L=8.2 H=10. 2 AGE 61 years eGFR (non-Afr.Amer.) 77520-9 94 mL/min eGFR (Afr-Libyan) 05923-9 113 mL/min C REACTIVE PROTEIN HIGH SENS ITIVITY* - Collect Date/Time: 01/27/2022 10:15 Test Name Code Test Result Test Units Test Ref Rang e CRP-HIGH SENS. 17396-6 8.24 mg/L L=0.00 H=3 .00 CRP-HIGH SENS 20321-0 0.82 mg/dL L=0.00 H=0. 30 CBC W/ DIFFERENTIAL* - Colle ct Date/Time: 01/27/2022 10:15 Test Name Code Test Result Test Units Test Ref Rang e WBC 6690-2 7.43 th/cmm L=5.00 H=10.00 NEUT % 72.4 % L=40.0 H=80.0 LYMPH % 17.9 % L=10.0 H=50.0 MONO % 73826-7 7.4 % L=2.0 H=12.0 EOS % 1.5 % L=0.0 H=8.0 BASO % 0.4 % L=0.0 H=3.0 IG % 2514-8 0.4 % L=0.0 H=1.1 NRBC % 09485-2 0.0 % L=0.0 H=0.0 NEUT abs count 751-8 5.4 th/cmm L=1.6 H=8. 4 LYMPH abs count 731-0 1.3 th/cmm L=1.5 H=4 .0 MONO abs count 742-7 0.6 th/cmm L=0.2 H=1. 0 EOS abs count 711-2 0.1 th/cmm L=0.0 H=0.5 BASO abs count 704-7 0.0 th/cmm L=0.0 H=0. 2 IG abs count 58676-5 0.0 th/cmm L=0.0 H=0.1 NRBC abs count 09867-4 0.0 mil/cmm L=0.0 H=0. 0 RBC 789-8 4.12 mil/cmm L=4.30 H=6.20 HEMOGLOBIN 718-7 12.4 gm/dL L=13.0 H=17.0 HEMATOCRIT 4544-3 37 % L=45 H=52 MCV 787-2 89 fL L=82 H=92 MCH 785-6 30.1 pg L=27.0 H=31.0 MCHC 786-4 33.8 % L=32.0 H=36.0 RDW-SD 788-0 45.1 fL L=39.0 H=49.0 PLATELET COUNT 777-3 136 th/cmm L=150 H=45 0 SED RATE* - Collect Date/Ken e: 01/27/2022 10:15 Test Name Code Test Result Test Units Test Ref Rang e SED. RATE 4537-7 31 mm/hr L=0 H=20 Active Medications Medications Administered During Visit Medication Dose Units Frequency Route Date/Time of Last Dose CEPHALEXIN CAPSULE: 500MG 1000 MG X1 PO 01/27/2022 10:59 Encounters Encounter Diagnosis Diagnosis Code Start Date Infection following a proced ure, superficial incisional surgical site, initial encounter [id number] 01/27/2022 Social History Smoking Status Code Start Date End Date Never smoker 586301760 Patient Decision Aids Unknown or Not Available. Discharge Instructions You were admitted to [facility] on 01/27/2022 08:39 with a principal diagnosis of Infection following a procedure, superficial incisional surgical site, initial encounter You had the following tests done:BASIC METABOLIC PANEL (BMP)C REACTIVE PROTEIN HIGH SENSITIVITY*CBC W/ DIFFERENTIAL*SED RATE* You were discharged from [facility] on 01/27/2022 11:10 Should you have any questions prior to discharge, please contact a member of your healthcare team. If you have left the hospital and have any questions, please contact your primary care physician. Chief Complaint and Reason For Visit Chief Complaint Date of Onset POST SURGICAL EXAM RIGHT WRIST POSSIBLE INFECTION Function Status Unknown or Not Available. Plan of Care Unknown or Not Available. Referral/Transition of Care Unknown or Not Available.
--- OUTSIDE RECORDS SUMMARY | 2022-12-22 09:21 | XMS_ITS | CCD ---
Author Name Unknown Address [address] [place] [address] [id number] Organization Unknown Address [address], [place] [id number] Care Team Providers Care Stitcher Operator Name Role Phone SALOME SCHRADER Attending Physician [phone] SALOME SCHRADER Rounding (Secondary) Physic carlos a [phone] Vital Signs Unknown or Not Available. Allergies Allergy Code Allergy Type Reaction Status No Known Allergies 0 No known allergies Active Procedures Unknown or Not Available. History of Immunizations Unknown or Not Available. Problems Problem Code Start Date Resolved Date Status Hyperlipidemia 65544174 Active Squamous cell carcinoma 292387288 A ctive Callus 508866257 Active Hearing loss 76741206 Active Dupuytren 888316164 Active Pain in right shoulder 68229638672239665 Active Venous insufficiency 63053304 Acti ve H/O: cardiac pacemaker 353050834 Ac tive ADHD 333116589 Active Hypertension 65570170 Active Pain in left ankle 240374187 Active Diabetes 2 49188574 Active Albumin level 283513067 Active Cirrhosis 13918561 Active Hepatitis C 49595118 Active Alcoholism 9827454 Active Esophageal varices 88775805 Active Results Unknown or Not Available. Active Medications Unknown or Not Available. Medications Administered During Visit Unknown or Not Available. Encounters Encounter Diagnosis Diagnosis Code Start Date Follow-up orthopedic assessment [id number] 02/03/2022 Social History Smoking Status Code Start Date End Date Never smoker 823102779 Patient Decision Aids Unknown or Not Available. Discharge Instructions You were admitted to [facility] on 02/03/2022 12:37 with a principal diagnosis of Encounter for other orthopedic aftercare You were discharged from [facility] on 02/03/2022 00:00 Should you have any questions prior [...]
[2022-12-22 15:08] LABS: HCT 35.3 % (40.0-50.0); HGB 11.8 g/dL (13.5-17.5); MCH 29.9 pg (27.0-33.0); MCHC 33.4 % (32.0-36.0); MCV 90 fL (80-95); MPV 10.4 fL (8.0-11.0); Platelet Count 134 10^3/uL (130-400); RBC 3.94 10^6/uL (4.36-5.78); RDW 13.5 % (11.8-14.1); RDW-SD 44.9 fL; WBC 5.74 10^3/uL (4.4-10.8)
[2022-12-22 15:34] LABS: ALT 42 U/L (16-63); AST 27 U/L (15-37); Albumin 3.9 g/dL (3.4-5.0); Alkaline Phosphatase 87 U/L (46-116); Anion Gap 9.3 mmol/L (3-11); BUN 16 mg/dL (7-18); Bilirubin, Total 0.4 mg/dL (0.2-1.0); CO2 24.7 mmol/L (21.0-32.0); CREATININE 0.9 mg/dL (0.70-1.30); Calcium 9.6 mg/dL (8.5-10.1); Chloride 101 mmol/L (98-107); Estimated GFR 95.37 (mL/min/1.73m2); Glucose 175 mg/dL (74-106); Potassium 4.4 mmol/L (3.5-5.1); Sodium 135 mmol/L (136-145); Total Protein 7.2 g/dL (6.4-8.2)
== END 2022-12-22 09:14 | disposition home or self-care (01) ==
LOC: NCHCN 09:13
PROVIDERS: PCP Internal Medicine; Visit Provider Internal Medicine
DX: E11.9 Type 2 diabetes mellitus without complications (principal); K74.60 Unspecified cirrhosis of liver
CPT/HCPCS: 80053; 85027; 83036

== ENCOUNTER 2023-04-15 13:50 | Outpatient (REF) | payer MEDICAID, SELFPAY | END 2023-04-15 13:51 | disposition home or self-care (01) | LOC: NCHCN 13:50 | PROVIDERS: PCP Internal Medicine; Visit Provider Internal Medicine | DX: E11.9 Type 2 diabetes mellitus without complications (principal) | CPT/HCPCS: 82043; 82570 ==

== ENCOUNTER 2024-12-27 10:15 | Outpatient (REF) | payer MEDICARE, SELFPAY ==
[2024-12-27 15:03] LABS: HCT 35.5 % (40.0-50.0); HGB 11.7 g/dL (13.5-17.5); MCH 29.5 pg (27.0-33.0); MCHC 33.0 % (32.0-36.0); MCV 90 fL (80-95); MPV 10.3 fL (8.0-11.0); Platelet Count 105 10^3/uL (130-400); RBC 3.96 10^6/uL (4.36-5.78); RDW 13.2 % (11.8-14.1); RDW-SD 43.6 fL; WBC 4.46 10^3/uL (4.4-10.8)
[2024-12-27 15:35] LABS: INR 1.0 (0.9-1.1); Prothrombin Time 9.8 sec (9.1-11.1)
[2024-12-27 16:25] LABS: ALT 32 U/L (16-63); AST 29 U/L (15-37); Albumin 3.8 g/dL (3.4-5.0); Alkaline Phosphatase 127 U/L (46-116); Anion Gap 7.1 mmol/L (3-11); BUN 16 mg/dL (7-18); Bilirubin, Total 0.4 mg/dL (0.2-1.0); CO2 28.9 mmol/L (21.0-32.0); Calcium 9.5 mg/dL (8.5-10.1); Calculated LDL 98 mg/dL (<100); Chloride 100 mmol/L (98-107); Cholesterol 197 mg/dL (<200); Estimated GFR 94.19 (mL/min/1.73m2); Glucose 271 mg/dL (74-106); HDL Cholesterol 88 mg/dL (>or=40); Potassium 4.9 mmol/L (3.5-5.1); Sodium 136 mmol/L (136-145); Total Protein 7.2 g/dL (6.4-8.2); Triglyceride 56 mg/dL (<150)
== END 2024-12-27 10:16 | disposition home or self-care (01) ==
LOC: NCHCN 10:15
PROVIDERS: PCP Internal Medicine; Visit Provider Family Medicine
DX: E78.5 Hyperlipidemia, unspecified (principal); K74.60 Unspecified cirrhosis of liver
CPT/HCPCS: 80053; 80061; 85027; 85610